=== PATIENT | male | born 1980 | race Two or more races ===

== ENCOUNTER 2016-10-03 14:17 | Emergency (ER) | payer OTHER ==
[~2016-10-03] VITALS: Ht 172.7 cm; Wt 93.0 kg
[~2016-10-03 14:17] MED LIST: ALBU05 IH
[2016-10-03 14:31] VITALS: BP 145/95
[2016-10-03] MEDS ORDERED: ALBUTEROL (0.083%) 2.5MG/3ML NEB HHN ONE (16:30)
[2016-10-03] MEDS ORDERED: PREDNISONE 20MG TABLET PO ONE (17:15)
== END 2016-10-03 17:30 | disposition home or self-care (01) ==
LOC: ER 16:17
DX: J45.901 Unspecified asthma with (acute) exacerbation (principal); R03.0 Elevated blood-pressure reading, without diagnosis of hypertension
CPT/HCPCS: 94640; 99283; J7611; 94644

== ENCOUNTER 2017-03-04 19:17 | Emergency (ER) | payer OTHER ==
[~2017-03-04] VITALS: Ht 172.7 cm; Wt 91.0 kg
[2017-03-04] MEDS ORDERED: ALBUTEROL (0.083%) 2.5MG/3ML NEB HHN STA ×2 (19:40→20:53)
[2017-03-04] MEDS ORDERED: PREDNISONE 20MG TABLET PO STA (19:40)
[2017-03-04] MEDS ORDERED: IPRATROPIUM BROMIDE (0.02%) 0.5MG/2.5ML NEB HHN STA ×2 (19:40→20:53)
[2017-03-04 23:00] VITALS: BP 148/95
== END 2017-03-04 23:00 | disposition home or self-care (01) ==
LOC: ER 19:17
DX: J45.901 Unspecified asthma with (acute) exacerbation (principal); I10 Essential (primary) hypertension
CPT/HCPCS: 94640; 99284; J7512; J7611

== ENCOUNTER 2017-06-30 22:49 | Emergency (ER) | payer OTHER ==
[~2017-06-30] VITALS: Ht 175.3 cm; Wt 98.0 kg
[2017-06-30] MEDS ORDERED: ALBUTEROL (0.083%) 2.5MG/3ML NEB HHN STA (23:46)
[2017-06-30] MEDS ORDERED: PREDNISONE 20MG TABLET PO STA (23:46)
[2017-06-30] MEDS ORDERED: IPRATROPIUM BROMIDE (0.02%) 0.5MG/2.5ML NEB HHN STA (23:46)
[2017-07-01] MEDS ORDERED: ALBUTEROL (0.083%) 2.5MG/3ML NEB HHN STA (00:07)
[2017-07-01] MEDS ORDERED: PREDNISONE 20MG TABLET PO STA (00:07)
[2017-07-01] MEDS ORDERED: IPRATROPIUM BROMIDE (0.02%) 0.5MG/2.5ML NEB HHN STA (00:07)
[2017-07-01 01:37] VITALS: BP 139/80
== END 2017-07-01 01:38 | disposition home or self-care (01) ==
LOC: ER 22:49
DX: J45.901 Unspecified asthma with (acute) exacerbation (principal); I10 Essential (primary) hypertension
CPT/HCPCS: 71045; 94644; 99285; J7512; J7611

== ENCOUNTER 2018-07-13 09:26 | Emergency (ER) | payer SELFPAY ==
[~2018-07-13] VITALS: Ht 172.7 cm; Wt 100.0 kg
[2018-07-13] MEDS ORDERED: ALBUTEROL (0.083%) 2.5MG/3ML NEB HHN STA (10:02)
[2018-07-13] MEDS ORDERED: IPRATROPIUM BROMIDE (0.02%) 0.5MG/2.5ML NEB HHN STA (10:02)
[2018-07-13] MEDS ORDERED: PREDNISONE 20MG TABLET PO STA (10:02)
[2018-07-13 13:10] VITALS: BP 140/89
== END 2018-07-13 13:12 | disposition home or self-care (01) ==
LOC: ER 09:26
DX: J45.901 Unspecified asthma with (acute) exacerbation (principal); E66.9 Obesity, unspecified; Z76.0 Encounter for issue of repeat prescription; Z68.33 Body mass index [BMI] 33.0-33.9, adult
CPT/HCPCS: 71045; 94640; 99283; J7512; J7611; Z7610

== ENCOUNTER 2018-10-21 10:29 | Emergency (ER) | payer BC ==
[~2018-10-21] VITALS: Ht 167.6 cm; Wt 102.0 kg
[2018-10-21] MEDS ORDERED: ALBUTEROL (0.083%) 2.5MG/3ML NEB HHN STA (10:39)
[2018-10-21] MEDS ORDERED: PREDNISONE 20MG TABLET PO STA (10:39)
[2018-10-21] MEDS ORDERED: IPRATROPIUM BROMIDE (0.02%) 0.5MG/2.5ML NEB HHN STA (10:39)
[2018-10-21 14:17] VITALS: BP 150/96
== END 2018-10-21 14:21 | disposition home or self-care (01) ==
LOC: ER 10:29
DX: J45.901 Unspecified asthma with (acute) exacerbation (principal); Z91.19 Patient's noncompliance with other medical treatment and regimen
CPT/HCPCS: 71045; 94640; 99285; J7512; J7611